=== PATIENT | female | born 1995 | race Caucasian/White ===

== ENCOUNTER 2019-06-24 05:08 | Emergency (ER) | payer MEDICAID, SELFPAY ==
--- NOTE | 2019-06-24 05:11 | ED_ITS ---
Entered by Melva Figueredo, acting as scribe for Radha Torres HPI - Abdominal Pain General: Chief Complaint: Abdominal Pain Stated Complaint: 7 weeks preg/abd pain/constipation Time Seen by Provider: 06/24/19 05:09 Source: patient and family Mode of arrival: ambulatory History of Present Illness: HPI narrative: 23 y/o female presents to the ED with complaint of abd pain and constipation for about a week. Pt states she is currently 7 weeks , she is 4 para 3. She has tried stool softeners and [id number] which have yielded large BMs each time, but she still feels like she is constipated. Pt reports some low back discomfort as well. Her primary concern at this time is that she does not have an ectopic . She states she has had a appendectomy in the past. MD elicited complaint: abdominal pain Associated Symptoms: Reports bloating and constipation; Denies chills, dysuria, fever(s), hematuria and syncope Review of Systems General: Reports: other (negative unless marked) Const: Denies: fever, chills, body aches, fatigue, malaise or diaphoresis Eyes: Denies: change in vision or blurry vision ENMT: Denies: throat pain, painful swallowing, hoarseness, ear pain, ear discharge, Change in hearing or nasal discharge Card: Denies: chest pain, palpitations, irregular heart rhythm, syncope, pre- syncope, shortness of breath on exertion or shortness of breath when lying down Resp: Denies: shortness of breath, productive cough, non-productive cough, wheezing, coughing up blood or chest congestion GI: Reports: abdominal pain, constipation and bloating : Denies: flank pain, painful urination, urinary frequency, urinary urgency, decreased urine ouput, urinary incontinence or blood in urine Skin/Breast: Denies: rash, skin tenderness or yellow skin Neuro: Denies: headache, numbness in extremities, weakness in extremities, changes in sensation, lack of coordination, difficulty walking, dizziness, vertigo or confusion Endo: Denies: excessive thirst, tired all the time, cold intolerance, excessive sweating, flushing or hot flashes Monty/Lymph: Denies: easy bruising, easy bleeding, petechiae or enlarged lymph nodes All/Imm: Denies: hives, throat swelling, tongue swelling, facial swelling or acute wheezing PFSH ED PFSH: Statuses (acute, chronic, etc) shown below reflect problem list status as previously entered and may not be historically accurate Social History Smoking and tobacco status: former smoker Physical Exam Const: COMMON NORMALS: no apparent distress, oriented x3, no limitations, healthy appearing and well nourished EXAM LIMITATIONS: no altered mental status GENERAL APPEARANCE: cooperative, well kempt and well developed ORIENTATION/CONSCIOUSNESS: Yes awake HENMT: COMMON NORMALS: normocephalic, head/scalp atraumatic, hearing grossly normal bilaterally, external ears normal, EAC's normal, external nose normal and moist oral mucous membranes HEAD & SCALP: normal to inspection, normocephalic and atraumatic FACE & SINUS: normal facial exam and face symmetric NOSE: external nose normal and nares normal EXTERNAL EAR: Yes external ears normal EXTERNAL AUDITORY CANAL: EAC's normal MOUTH: oral and palatal mucosa normal and tongue normal Eye: COMMON NORMALS: PERRL, EOMs intact bilaterally, conjunctivae normal and no scleral icterus GENERAL EYE: normal appearance of both eyes and normal light reflex CONJUNCTIVA: Yes conjunctivae normal SCLERA: sclerae normal CORNEA: Yes corneas normal PUPIL: Yes PERRL DIRECT OPHTHALMOSCOPY: Yes normal light reflex Neck/C-Spine: COMMON NORMALS: full ROM, no lymphadenopathy, supple, no meningeal signs and no JVD GENERAL: Yes normal visual inspection and Yes trachea midline CERVICAL SPINE: Yes cervical ROM normal Chest: COMMONS NORMALS: inspection of chest normal and palpation of chest normal Resp: COMMON NORMALS: normal respiratory effort, no retractions, no use of accessory muscles and clear to auscultation bilaterally EFFORT & INSPECTION: Yes able to speak in complete sentences AUSCULTATION: clear to auscultation bilaterally Cardio: COMMON NORMALS: no JVD, regular rate, regular rhythm, S1 normal heart sound, S2 normal heart sound, no gallops, no clicks, no murmurs and no rub JUGULAR VENOUS DISTENTION: no JVD RATE: regular rate RHYTHM: regular rhythm HEART SOUNDS: S1 normal and S2 normal GI: COMMON NORMALS: normal to inspection, nondistended, normoactive bowel sounds, soft to palpation, non-tender and no masses PALPATION: Yes soft : COMMON NORMALS: Yes no CVA tenderness and Yes bimanual exam normal BLADDER/KIDNEY EXAM: Yes no CVA tenderness EXTERNAL FEMALE EXAM: Yes normal appearance of the urethra, No erythema, No externally tender and No urethral discharge SPECULUM EXAM - VAGINA: No vaginal lesion, No vaginal bleeding, No tissue present in vagina, No vaginal mass and No vaginal swelling SPECULUM EXAM - CERVIX: No cervical os open, Yes cervical os closed, No tissue present in the cervical os and No cervical bleeding BIMANUAL EXAM - VAGINA & UTERUS: Yes normal bimanual exam, Yes normal vaginal palpation, Yes normal cervical palpation and Yes uterine size normal BIMANUAL EXAM - ADNEXA, OTHER: Yes normal adnexae, Yes adnexae mobile, Yes pelvic support normal, No adnexal tenderness, No adnexal mass, No cul-de-sac fullness and No cul-de-sac tenderness RECTO-VAGINAL: no cul-de-sac fullness and no cul-de-sac tenderness OB/EXTERNAL & SPECULUM: no tissue noted in vagina, cervical os open and vaginal bleeding Back/Pelvis: COMMON NORMALS: no CVA tenderness Extremity: COMMON NORMALS: normal to inspection, full ROM, normal capillary refill, no joint enlargement, no clubbing, cyanosis or edema and no calf tenderness Neuro: COMMON NORMALS: oriented x3, CN's II-XII intact bilaterally, moves all extremities, no focal motor deficits and no sensory deficits noted MENINGEAL SIGNS: Yes no meningeal signs Psych: COMMON NORMALS: mental status grossly normal, thought process normal, cooperative, affect normal, speech normal and activity/motor behavior normal APPEARANCE: Yes well kempt SPEECH: Yes normal speech THOUGHT PROCESS: normal thought process Skin: COMMON NORMALS: no rashes or lesions noted, skin turgor normal, no jaundice, no petechiae and no mottling GENERAL SKIN EXAM: no rashes or lesions noted and turgor normal Course Vital Signs: Vital signs: Vital Signs Temperature 97.6 F 06/24/19 05:18 Pulse Rate 71 06/24/19 07:01 Respiratory Rate 17 06/24/19 07:01 Blood Pressure 123/85 06/24/19 07:01 Pulse Oximetry 99 06/24/19 07:01 MDM - Abdominal Pain MDM Narrative: Medical decision making narrative: Patient presents with pelvic pain and low back pain in . Vital signs are stable and she is stated her primary concern is that of ectopic . She has had a appendectomy in the past but denies any other surgical interventions on her abdomen. This will be her third . Differential includes bowel obstruction, gastroenteritis, ectopic , threatened miscarriage among others. Clinically at this time I believe bowel obstruction is unlikely as the patient's not vomiting. UTI is a possibility as well but patient has no dysuria or hematuria. 0700 -patient's ultrasound reveals intrauterine and no sign of ectopic . Adnexa and tubes are normal excluding ovarian torsion or ruptured ovarian cyst. Patient has no vaginal bleeding or discharge. Per review of records the patient's Rh type is positive so she will not need RhoGam. Appendicitis is obviously not a problem she is had an appendectomy in the past. The patient declines any other imaging as she is concerned about radiation exposure to her fetus. Clinically at this time she is relieved and I believe her primary concern is that of just ectopic. I did make her aware about the possibility of a miscarriage and she is aware. She agrees to return should her symptoms change or worsen. Lab Data: Attestation: I reviewed the patient's lab results. Labs: Lab Results 06/24/19 06/24/19 06/24/19 Range/Units 05:29 05:50 05:50 WBC 9.9 (4.0-10.0) 10^3/ uL RBC 3.82 L (4.1-5.3) 10^6/u L Hgb 12.6 (11.5-15.3) g/dL Hct 35.7 L (37.0-47.0) % MCV 93.5 (81-99) fL MCH 33.0 (28.0-34.0) pg MCHC 35.3 (30.0-36.0) g/dL RDW 11.5 L (12.1-15.1) % Plt Count 166 (130-400) 10^3/c mm MPV 12.5 H (7.4-10.4) fL Neut % (Auto) 68.2 % Lymph % (Auto) 24.8 % [place] % (Auto) 5.4 % Eos % (Auto) 1.1 % Baso % (Auto) 0.4 % Neut # (Auto) 6.7 (1.8-7.7) 10^3/u L Lymph # (Auto) 2.5 (0.8-4.8) 10^3/u L [place] # (Auto) 0.5 (0.2-0.9) 10^3/u L Eos # (Auto) 0.1 (0.0-0.8) 10^3/u L Baso # (Auto) 0.0 (0.0-0.1) 10^3/u L Nucleated RBC % (a uto) 0 % Nucleated RBCs # 0.0 /100WBC Sodium 136 (136-145) mmol/L Potassium 3.7 (3.5-5.1) mmol/L Chloride 99 (98-107) mmol/L Carbon Dioxide 25 (22-29) mmol/L Anion Gap 15.7 (5-19) BUN 7 (6-20) mg/dL Creatinine 0.4 L (0.5-0.9) mg/dL GFR Calculation 199.6 H (90-130) mL/min Glucose 96 (74-109) mg/dL Calcium 9.8 (8.6-10.0) mg/Dl Total Bilirubin 0.2 (0.15-1.2) mg/dL AST 21 (0-32) U/L ALT 39 H (0-33) U/L Alkaline Phosphata se 70 (35-105) IU/L Total Protein 7.4 (6.6-8.7) g/dL Albumin 4.5 (3.5-5.2) g/dL Globulin 2.9 (1.3-4.6) g/dL Lipase 20 (13-60) U/L Ser , [place] [address].00 mIU/mL Urine Color Yellow (Yellow) Urine Appearance Cloudy A (CLEAR) Urine pH 8 H (5-7) Ur Specific Gravit y 1.020 (1.005-1.030) Urine Protein Neg (Negative) Urine Glucose (UA) Norm (Normal) Urine Ketones Negative (Negative) Urine Occult Blood Neg (Negative) Urine Nitrate Negative (Negative) Urine Bilirubin Neg (NEGATIVE) Prot Sulfosalicyli c Acd Negative Urine Urobilinogen Norm (Negative) mg/dL Ur Leukocyte Melinda ase Negative (Negative) Urine RBC None (0-2) /hpf Urine WBC None (0-5) /hpf Ur Squamous Epith Cells None (0-5) Amorphous Sediment 3+ Urine Bacteria 4+ H (NONE) Imaging Data ^: US: Radiologist's impression: Tech interpretation -7-week 2-day intrauterine with a heart rate in the 120s. Corpus luteum cyst on left ovary. No evidence of ovarian torsion. No tubo-ovarian abscess or free fluid. Otherwise unremarkable. Cervix closed. Discharge Plan Discharge Patient Disposition: Home, Self-Care Clinical Impression: Threatened miscarriage in early Condition: Stable Prescriptions: No Action No Known Home Medications RF: 0 Discharge Orders: Discharge Order (Routine); Ordered 06/24/19 Ordered By: Radha Torres Referrals: Delano Pineda MD [Physician] - Octavio Roque DO [Family Provider] - Discharge Diet: Usual diet Discharge Activity: Increase activity as tolerated Patient Instructions: Constipation - Adult, Threatened Miscarriage (ED) Activity Restrictions/Additional Instructions: Please return to the ER immediately for any of the signs or symptoms listed on your discharge instruction sheets, worsening/changing of your symptoms, you are not getting better as quickly as expected, or for ANY other cause or concerns. Return to the ER for vaginal bleeding, pain, fever, or for any other cause for concern. Interventions: ED Discharge Assessment Last Done: 06/24/19 07:01 Discharge Date/Time: 06/24/19 07:10 Coding Level of Care Code ED Wire Lather for Chg Fwd Exam Problem Focused The documentation recorded by the Terell reddy Ashley, accurately reflects the service I personally performed and the decisions made by Melissa campbell Eli N Jun 24, 2019 05:08
[2019-06-24 05:18] VITALS: BP 129/74; PULSE 88; RESP 16; TEMP 36.4; O2SAT 98; BMI 25.6
--- NOTE | 2019-06-24 05:19 | US_ITS ---
WS: [id number] EARLY OBSTETRICAL ULTRASOUND (<14 WEEKS). HISTORY: Pain COMPARISON: None available. Single intrauterine gestational sac is identified. Cardiac activity at 126 BPM. [place]-rump length richard sures 1.1 cm which corresponds to a gestation of 7w2d. Normal-appearing yolk sac and amnion demonstra steven. Smallsubchorionic hemorrhage.Hypoechoic area along the inferior gestational sac measures 0.8 x 0 .5 x 0.6 cm. No free fluid. Normal size LEFT ovary contains a collapsing corpus luteum or hemorrhagic cyst. Complex cyst with ret racting clot measures 1.7 x 1.9 cm. US/US OB <=14 wk fetus w transvag IMPRESSION: 1. Single intrauterine gestation of 7 weeks 2 days with an EDC of 02/08/2020. 2. LEFT corpus luteum cyst versus hemorrhagic cyst with retracting clot. 3. Tiny subchorionic hemorrhage.
[2019-06-24] MEDS: sodium chloride 0.9% 1,000 ML 100 ML IV (05:57)
[2019-06-24 06:04] LABS: Basophils % 0.4 %; Eosinophils # 0.1 10^3/uL (0.0-0.8); Eosinophils % 1.1 %; Hematocrit 35.7 % (37.0-47.0); Hemoglobin 12.6 g/dL (11.5-15.3); Lymphocytes # 2.5 10^3/uL (0.8-4.8); Lymphocytes % 24.8 %; Mean Corpuscular HGB Conc 35.3 g/dL (30.0-36.0); Mean Corpuscular Volume 93.5 fL (81-99); Mean Platelet Volume 12.5 fL (7.4-10.4); Monocytes # 0.5 10^3/uL (0.2-0.9); Monocytes % 5.4 %; Neutrophils # 6.7 10^3/uL (1.8-7.7); Neutrophils % 68.2 %; Nucleated Red Blood Cells % 0 %; Platelet Count 166 10^3/cmm (130-400); Red Blood Count 3.82 10^6/uL (4.1-5.3); Red Cell Distribution Width 11.5 % (12.1-15.1); White Blood Count 9.9 10^3/uL (4.0-10.0)
[2019-06-24 06:07] LABS: Bilirubin Urine Neg (NEGATIVE); Blood Urine Neg (Negative); Glucose Urine UA Norm (Normal); Ketones Urine Negative (Negative); Leukocyte Esterase Urine Negative (Negative); Nitrate Urine Negative (Negative); Protein Urine Neg (Negative); Sulfosalicylic Acid Urine Negative; Urine Appearance Cloudy (CLEAR); Urine Color Yellow (Yellow); Urobilinogen Urine Norm (Negative); pH Urine 8 (5-7)
[2019-06-24 06:08] LABS: Add Urine Culture? No; Amorphous Sediment Urine 3+; Bacteria Urine 4+
[2019-06-24 06:43] LABS: Alanine Aminotransferase 39 U/L (0-33); Albumin Level 4.5 g/dL (3.5-5.2); Alkaline Phosphatase 70 IU/L (35-105); Anion Gap 15.7 (5-19); Aspartate Amino Transferase 21 U/L (0-32); Blood Urea Nitrogen 7 mg/dL (6-20); Calcium 9.8 mg/Dl (8.6-10.0); Carbon Dioxide 25 mmol/L (22-29); Chloride 99 mmol/L (98-107); Globulin 2.9 g/dL (1.3-4.6); Glomerular Filtration Rate 199.6 mL/min (90-130); Glucose 96 mg/dL (74-109); Lipase 20 U/L (13-60); Potassium 3.7 mmol/L (3.5-5.1); Sodium 136 mmol/L (136-145); Total Bilirubin 0.2 mg/dL (0.15-1.2); Total Protein 7.4 g/dL (6.6-8.7)
--- NOTE | 2019-06-24 06:56 | PC.NURSE ---
Report received from Karina Best RN
[2019-06-24 07:00] VITALS: BP 123/85; PULSE 76; RESP 17; O2SAT 99
[2019-06-24 07:01] VITALS: BP 123/85; PULSE 71; RESP 17; O2SAT 99
--- NOTE | 2019-06-25 10:18 | DCPLANNER ---
systems manager had message to schedule a follow up appointment for patient with [facility]. systems manager called [facility], spoke with Shahrzad, gave clinic patients information. Case manger was told that patients information would be printed and reviewed. Clinic will call residential case manager and patient with appointment information.
--- NOTE | 2019-07-25 09:26 | DCPLANNER ---
resident care manager rn called Shahrzad at [facility] to confirm if an appointment had been scheduled for patient. resident care manager rn was told that the clinic has attempted to contact patient several times and has been unable to reach patient to schedule an appointment.
== END 2019-06-24 07:10 | disposition home or self-care (01) ==
PROVIDERS: Emergency Provider Emergency Medicine; Family Provider Electrodiagnostic Medicine
DX: O20.0 Threatened abortion (principal); Z3A.01 Less than 8 weeks gestation of pregnancy; Z87.891 Personal history of nicotine dependence
CPT/HCPCS: 76801; 76817; 80053; 81001; 83690; 84702; 85025; 87210; 87491; 87591; 96360; 99283; A9270; J7030

== ENCOUNTER 2020-01-31 22:00 | Inpatient (IN) | payer MEDICAID, SELFPAY ==
[2020-01-31] VITALS (56 sets, daily range): BP systolic 0–165; BP diastolic 0–98; PULSE 82–144; RESP 18; TEMP 36.5; O2SAT 91–99; BMI 29.4
[2020-01-31] MEDS: miSOPROStol 100 mcg tablet 25 MCG VAGINAL (20:22)
[2020-01-31] MEDS: lactated ringers 1,000 ML 999 ML IV ×2 (20:45→21:59)
[2020-01-31 21:38] LABS: Basophils % 0.3 %; Eosinophils # 0.1 10^3/uL (0.0-0.8); Eosinophils % 0.8 %; Hematocrit 32.8 % (37.0-47.0); Hemoglobin 10.6 g/dL (11.5-15.3); Lymphocytes % 22.1 %; Mean Corpuscular HGB Conc 32.3 g/dL (30.0-36.0); Mean Corpuscular Volume 89.9 fL (81-99); Mean Platelet Volume 13.7 fL (7.4-10.4); Monocytes # 0.6 10^3/uL (0.2-0.9); Monocytes % 6.4 %; Neutrophils # 6.48 10^3/uL (1.8-7.7); Nucleated Red Blood Cells % 0 %; Platelet Count 133 10^3/cmm (130-400); Red Blood Count 3.65 10^6/uL (4.1-5.3); Red Cell Distribution Width 12.4 % (12.1-15.1); White Blood Count 9.3 10^3/uL (4.0-10.0)
--- NOTE | 2020-01-31 22:18 | ANES.PREANE2 ---
Pre-Anesthetic Assessment Pre-Anesthetic Assessment: Height/Weight: Height 1.57 m Weight 73.028 kg Pulse BP 109 H 153/77 01/31/20 22:09 01/31/20 22:09 Preop Diagnosis: Labor Proposed Procedure: epidural Familial anesthetic complications: none Was Beta Aleks taken within 24 hours: N/A Social: Social History: No alcohol and No tobacco Exam: Pre-Anes Outpt Exam: alert, oriented x 3, clear to auscultation bilaterally and regular rate & rhythm Airway: Submandibular: WNL Cervical ROM: WNL MP: 2 Dentition: Full Pulmonary: Pulmonary: None reported CV/HEM: CV/HEM: None reported Hepatic: Hepatic: None reported GI: GI: GERD Metabolic: Metabolic: None reported Musc/skel: Musc/skel: None reported Neuropsych: Neuropsych: None reported Anesthetic Plan: ASA status: 2 Anesthesia: Eval. for regional block and Regional (specify below) Risk of > 500 ml blood loss (7ml/kg in children): No Meds/Allergies Current Medications: Current Medications Generic Name Dose Route Start Last Admin Trade Name Freq PRN Reason Stop Dose Admin Lactated Ringer's 1,000 mls @ 999 m ls/hr 01/31/20 19:51 01/31/20 21:59 Lactated Ringers IV 999 mls/hr .Q1H1M PRN Administration Per L&D Rescitati on Protocol Lactated Ringer's 1,000 mls @ 999 m ls/hr 01/31/20 19:56 01/31/20 20:45 Lactated Ringers IV 999 mls/hr .Q1H1M PRN Administration ANESTHESIA Misoprostol 25 mcg 01/31/20 20:00 01/31/20 20:22 Cytotec VAGINAL 02/01/20 00:01 25 mcg Q4H ERICKSON Administration PFSH Anesthesia PFSH: Social History Smoking and tobacco status: former smoker Female Reproductive History: : 4 Data Anesthesia CBC & Chem 7: 01/31/20 19:45 Other Labs: Laboratory Results - last 48 hr 01/31/20 19:45 WBC 9.3 RBC 3.65 L Hgb 10.6 L Hct 32.8 L MCV 89.9 MCH 29.0 MCHC 32.3 RDW 12.4 Plt Count 133 MPV 13.7 H Neut % (Auto) 70.0 Lymph % (Auto) 22.1 [place] % (Auto) 6.4 Eos % (Auto) 0.8 Baso % (Auto) 0.3 Neut # (Auto) 6.48 Lymph # (Auto) 2.0 [place] # (Auto) 0.6 Eos # (Auto) 0.1 Baso # (Auto) 0.0 Nucleated RBC % (auto) 0 Nucleated RBCs # 0.0 Cardiac Studies: No Data to Display
--- NOTE | 2020-01-31 22:45 | ANES.PROC ---
Anesthesia Procedures Procedure/Date: 01/31/20 epidural Procedure Narrative: epidural complete, bolus given, epidural pump initiated with STEEL SHOT HEADER OPERATOR education given, vitals taken during procedure using OBIX system and satisfactory throughout, patient admits to decrease pain, report of procedure to OB RN Epidural: Time Out Performed: Yes Consents Signed: Procedure Consent Consent: requested by attending/covering physician, from patient, risks and benefits reviewed and patient agrees to proceed Lumbar Level: L3-L4 Epidural position: sitting Epidural procedure: sterile prep of area, 1% lidocaine to numb the area (3 mL), 18 g needle, negative for paresthesia passed, neg for paresthesia, test dose given, 1.5% xylocaine 1:200k epi (5 mL), 0.2% Ropivacaine bolus ml (5 mL), placed PCEA, no systemic response, sterile dressing applied, L.U.D. no apparent complications and 0.2% Ropiavacaine @ mls/hr (13 mL/hr)
[2020-01-31] MEDS: ondansetron 2 mg/ML SDV 2 mL 4 MG IVP (22:59)
[2020-02-01] VITALS (61 sets, daily range): BP systolic 0–149; BP diastolic 0–90; PULSE 74–128; RESP 16–18; TEMP 36.4–37.2; O2SAT 90–98
[2020-02-01] MEDS: miSOPROStol 100 mcg tablet 25 MCG VAGINAL (00:29)
[2020-02-01] MEDS: dextrose 5%-lactated ringers 1,000 ML 125 ML IV ×2 (02:06→10:51)
[2020-02-01] MEDS: oxytocin 30 UNIT/500 ML BAG 600 UNIT IV (09:30)
--- NOTE | 2020-02-01 09:45 | P.PCNOB_ITS ---
Delivery Note: Date of delivery: February 01, 2020 this 24-year-old 4 now para 4 female at term was admitted for cervical ripening and induction. She was given misoprostol 25 mcg x 2 overnight and received epidural anesthesia in the [facility] secondary to significant pain. At approximately 5 cm dilated this morning she had spontaneous rupture of membranes with meconium-stained fluid. She dilated to completion with dilatation and delivered by spontaneous vaginal delivery a healthy, viable male infant at 09 27. Upon delivery of the head the mouth and nose were suctioned followed by delivery of the left shoulder anteriorly and the right shoulder posteriorly without problems. The infant was suctioned more and umbilical cord was clamped and cut prior to laying the infant on mother's abdomen per her request. The infant's father cut the umbilical cord. The was handed over to the nurses for evaluation and cleansing. The placenta delivered spontaneously at 09 30 with no lacerations and no sutures. As described above epidural anesthesia was used for the labor and delivery process. Apgars were 9 and 9 at 1 and 5 minutes respectively and weight was 8 pounds 8 ounces. Estimated blood loss approximately 146 mL. Pre-Delivery Course: This patient was followed throughout her course by this physician. There were no major problems or concerns throughout the . Maternal blood type is O+ with antibody screen negative. Hepatitis B, hepatitis C, RPR and HIV were negative. Rubella was immune and group B strep was negative. Mom was induced at her request at 40 weeks gestation. She had discussed with this physician and Dr. Avendano her desire for tubal ligation. Delivery: Spontaneous vaginal delivery as described above. Post-Delivery Status: Patient is doing well and will be followed for routine care. Dr. Avendano will be consulted for tubal ligation. A&P Assessment and plan (1) Normal spontaneous vaginal delivery: There were no problems with labor and delivery process. Mom will be followed for routine postdelivery care. Status: Acute (2) tubal ligation planned: Dr. Avendano has been consulted and he will see the patient and probably do the procedure tomorrow late morning. Status: Acute Coding Level of Care Code Acute Reservation Sales Agent for Song Fwanival Diagnoses Normal spontaneous vaginal delivery O80 tubal ligation planned
[2020-02-01] MEDS: benzocaine-menthol 78 gm Canister 1 SPRAY TOPICAL (10:50)
[2020-02-01] MEDS: HYDROcodone-acetaminophen 5-325 mg Tablet PO ×2 (12:37→18:37)
--- NOTE | 2020-02-01 13:05 | SUR.OPER ---
pt ambulated to pushing in open crib.
[2020-02-01] MEDS: docusate sodium 100 mg Capsule PO (18:30)
[2020-02-01 22:05] LABS: Hematocrit 26.9 % (37.0-47.0); Hemoglobin 8.5 g/dL (11.5-15.3); Mean Corpuscular HGB Conc 31.6 g/dL (30.0-36.0); Mean Corpuscular Hemoglobin 29.2 pg (28.0-34.0); Mean Corpuscular Volume 92.4 fL (81-99); Mean Platelet Volume 12.6 fL (7.4-10.4); Platelet Count 96 10^3/cmm (130-400); Red Blood Count 2.91 10^6/uL (4.1-5.3); Red Cell Distribution Width 12.7 % (12.1-15.1); White Blood Count 12.2 10^3/uL (4.0-10.0)
[2020-02-02] VITALS (7 sets, daily range): BP systolic 103–154; BP diastolic 68–86; PULSE 59–104; RESP 15–18; TEMP 36.1–36.9; O2SAT 96–98
[2020-02-02] MEDS: HYDROcodone-acetaminophen 5-325 mg Tablet PO ×2 (01:13→13:09)
[2020-02-02] MEDS: prenatal vitamin Capsule 1 CAP PO (08:43)
[2020-02-02] MEDS: docusate sodium 100 mg Capsule PO (08:43)
--- NOTE | 2020-02-02 08:46 | P.PN_ITS ---
Subjective Subjective: Interval history: Patient is doing well with just mild lochia. No significant cramps or other problems. He is bottlefeeding. Vitals/I&O/Wt Last Vital Signs Temp 97.7 F 02/02/20 06:19 Pulse 72 02/02/20 06:19 Resp 16 02/02/20 06:19 BP 126/77 02/02/20 06:19 Pulse Ox 97 02/02/20 06:19 02/01/20 02/02/20 02/02/20 22:59 06:59 14:59 Intake Total 1200 / 3047.917 Output Total 600 / 1500 Balance 600 / 1547.917 Weight last 48 hrs Weight 73.028 kg Weight 73.028 kg Physical Exam Const: COMMON NORMALS: no acute distress and average body habitus GENERAL APPEARANCE: cooperative Resp: COMMON NORMALS: normal respiratory effort, No retractions, No use of accessory muscles and clear to auscultation bilaterally AUSCULTATION: clear to auscultation bilaterally Cardio: COMMON NORMALS: regular rate, regular rhythm and No murmurs present (Cardio) RATE: regular rate RHYTHM: regular rhythm GI: COMMON NORMALS: Normal to inspection, nondistended, normoactive bowel sounds present, Soft to palpation and non-tender (Fundus is firm.) PALPATION: Yes Soft to palpation : COMMON NORMALS: Yes no CVA tenderness BLADDER/KIDNEY EXAM: Yes no CVA tenderness Back/Pelvis: COMMON NORMALS: no CVA tenderness Extremity: COMMON NORMALS: normal to inspection, full ROM and no pedal edema Neuro: COMMON NORMALS: no focal motor deficits and no sensory deficits noted Psych: COMMON NORMALS: mental status grossly normal and Normal thought process present THOUGHT PROCESS: Normal thought process present Urinary Catheter Management^: [place] Latex: Cath Placed During This Visit: yes Reason for Continuing Indwelling Catheter: Accurate Measurement of Urinary Output in Critically Ill Patients Urinary Catheter Date of Insertion: 02/01/20 Urinary Catheter Time of Insertion: 00:15 Data : 02/01/20 21:56 A&P Assessment and plan (1) Normal spontaneous vaginal delivery: Patient is doing well and will probably be stable for discharge this evening. Status: Acute (2) tubal ligation planned: Dr. Avendano plans to do tubal ligation this afternoon and patient can probably be discharged home a little bit after that. Status: Acute Attestations Medical Necessity Statement*: Patient is stable discharged home at this time. However, will monitor for a while after tubal ligation to make sure she is stable to go home. Coding Level of Care Code Acute Associate Artistic Director for Chg Fwd Diagnoses Normal spontaneous vaginal delivery O80 tubal ligation planned
--- NOTE | 2020-02-02 11:22 | PC.NURSE ---
Chante RN from surgery came to get pt, wheeled pt on gurney to surgery
--- NOTE | 2020-02-02 11:47 | ANE.PACU2 ---
Inpatient post-anesthesia follow up: Airway intact: Yes Vital signs: Temperature 97.7 F Pulse Rate 72 Respiratory Rate 16 Blood Pressure 126/77 Pulse Oximetry 97 Oxygen Delivery Me thod Room Air Oxygen Flow Rate Fraction of Inspir ed Oxygen Hydration adequate: Yes Nausea and vomiting: No Pain level: 2 Mental status: Baseline Additional Comments: No weakness, numbness, no headaches, slight tenderness to palpation of epidural site and no signs of infection at site
--- NOTE | 2020-02-02 11:49 | P.ANESASSM_ITS ---
Pre-Anesthetic Assessment Pre-Anesthetic Assessment: Height/Weight: Height 1.57 m Weight 73.028 kg Temp Pulse Resp BP Pulse Ox 97.7 F 72 16 126/77 97 02/02/20 06:19 02/02/20 06:19 02/02/20 06:19 02/02/20 06:19 02/02/20 06:19 Preop Diagnosis: undesired fertility Proposed Procedure: Operation Date: 02/02/20 12:10 Proposed Procedures p Post Bilateral Tubal Ligation(Bilateral) - Kai Avendano MD Operation Date: 02/02/20 12:00 Proposed Procedures p Bilateral Tubal Ligation(Bilateral) - Kai Avendano MD Familial anesthetic complications: None Last intake: Intake Last Liquid Date 02/02/20 Last Liquid Time 00:00 Last Solid Date 02/02/20 Last Solid Time 00:00 Social: Social History: No alcohol and No tobacco Exam: Pre-Anes Outpt Exam: alert, oriented x 3, clear to auscultation bilaterally and regular rate & rhythm Airway: Cervical ROM: WNL MP: 1 Dentition: Full Anesthetic Plan: ASA status: 1 Anesthesia: General Risk of > 500 ml blood loss (7ml/kg in children): No Meds/Allergies Current Medications: Current Medications Generic Name Dose Route Start Last Admin Trade Name Freq PRN Reason Stop Dose Admin Hydrocodone Bitart /Acetaminophen 1 - 2 tab 02/01/20 09:41 02/02/20 01:13 [place] 5-325 Mg PO 2 tab Q6H PRN Administration MODERATE TO SEVER E PAIN Benzocaine 1 spray 02/01/20 09:41 02/01/20 10:50 Dermoplast TOPICAL 1 can PRN PRN Administration PAIN Docusate Sodium 100 mg 02/01/20 18:00 02/02/20 08:43 Colace PO 100 mg BID ERICKSON Administration Ibuprofen 800 mg 02/01/20 15:00 02/02/20 08:43 Motrin PO 800 mg TID ERICKSON Administration Multivit/ Folic Acid/Iron 1 cap 02/02/20 09:00 02/02/20 08:43 -U PO 1 cap DAILY ERICKSON Administration PFSH Anesthesia PFSH: Social History Smoking and tobacco status: former smoker Female Reproductive History: : 4 Data Anesthesia CBC & Chem 7: 02/01/20 21:56 Other Labs: Laboratory Results - last 48 hr 01/31/20 02/01/20 19:45 21:56 WBC 9.3 12.2 H RBC 3.65 L 2.91 L Hgb 10.6 L 8.5 L Hct 32.8 L 26.9 L MCV 89.9 92.4 MCH 29.0 29.2 MCHC 32.3 31.6 RDW 12.4 12.7 Plt Count 133 96 L MPV 13.7 H 12.6 H Neut % (Auto) 70.0 Lymph % (Auto) 22.1 [place] % (Auto) 6.4 Eos % (Auto) 0.8 Baso % (Auto) 0.3 Neut # (Auto) 6.48 Lymph # (Auto) 2.0 [place] # (Auto) 0.6 Eos # (Auto) 0.1 Baso # (Auto) 0.0 Nucleated RBC % (auto) 0 Nucleated RBCs # 0.0 Cardiac Studies: No Data to Display
--- NOTE | 2020-02-02 11:49 | PM.OBGYHP ---
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 I saw her earlier in my office and we discussed the pros and cons of a tubal ligation. We discussed the risks including the risk of bleeding, infection, and damage to intra-abdominal organs. We also discussed other risks including an increased risk of AN ectopic and the possibility becoming again despite a successful tubal ligation. We once again discussed these risks this morning, and she would like to proceed. Present Details : 4 Para: 3 Labs Rubella: Equivocal RPR: Negative GBS: Negative Review of Systems General: Reports: 10 or more systems reviewed and unremarkable except in HPI and below Const: Reports: fatigue; Denies: fever(s) Eyes: Denies: change in vision Card: Denies: chest pain Musc: Reports: back pain Monty/Lymph: Denies: easy bruising Medications/Allergies Home Medications Medication Instructions Recorded Confirmed Last Taken Type No Known Home Medications 06/24/19 06/24/19 Unknown History Allergies Allergy/AdvReac Type Severity Reaction Status Date / Time No Known Allergies Allergy Verified 01/31/20 21:24 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 PFSH: Social History Smoking and tobacco status: former smoker Vitals/I&O/Wt Last Vital Signs Temp 97.7 F 02/02/20 06:19 Pulse 72 02/02/20 06:19 Resp 16 02/02/20 06:19 BP 126/77 02/02/20 06:19 Pulse Ox 97 02/02/20 06:19 02/01/20 02/02/20 02/02/20 22:59 06:59 14:59 Intake Total 1200 / 3047.917 Output Total 600 / 1500 Balance 600 / 1547.917 Weight last 48 hrs Weight 161 lb Weight 161 lb Physical Exam Const: COMMON NORMALS: patient oriented x3 and alert HENMT: COMMON NORMALS: moist oral mucous membranes HEAD & SCALP: normal to inspection Chest: COMMONS NORMALS: normal inspection of the chest Resp: COMMON NORMALS: clear to auscultation bilaterally AUSCULTATION: clear to auscultation bilaterally Cardio: COMMON NORMALS: regular rate and regular rhythm RATE: regular rate RHYTHM: regular rhythm GI: INSPECTION: Yes normal to inspection and Yes other (Gravid) Extremity: COMMON NORMALS: normal to inspection GENERAL: Yes edema (Trace) Neuro: COMMON NORMALS: patient oriented x3, moves all extremities and no sensory deficits noted SENSORIUM/ORIENTATION: Yes alert Psych: COMMON NORMALS: mental status grossly normal Skin: COMMON NORMALS: no rashes or lesions noted GENERAL SKIN EXAM: no rashes or lesions noted Urinary Catheter Management^: [place] Latex: Cath Placed During This Visit: yes Reason for Continuing Indwelling Catheter: Accurate Measurement of Urinary Output in Critically Ill Patients Urinary Catheter Date of Insertion: 02/01/20 Urinary Catheter Time of Insertion: 00:15 Data : 02/01/20 21:56 A&P Assessment and plan (1) Sterilization consult: We will proceed with a bilateral tubal ligation. As discussed earlier, we reviewed the pros and cons and risks. Status: Acute Attestations Medical Necessity Statement*: The patient should build to be discharged this evening if all goes well. 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
--- NOTE | 2020-02-02 12:27 | P.OP_ITS ---
Operative Report Date of procedure: February 02, 2020 Pre-op Diagnosis: undesired fertility Post-op diagnosis: same Procedure Done: minilaparotomy bilateral tubal ligation using a modified Jodi technique Specimens removed/disposition: Bilateral fallopian tube segments with the right segment being tagged Surgeon: Kai Avendano Anesthesia: General Estimated blood loss (mL): 5 Condition: stable Disposition: floor (OB) Procedure: The patient was brought back to the operating room where anesthesia was found to be adequate. 10 mL of 0.5% bupivacaine was then used to pre- anesthetize the area just inferior to the umbilicus. A #15 blade was then used to make a 3 cm transverse incision just inferior to the umbilicus. I then dissected down to the underlying subcutaneous tissue until arriving at the fasci a. The fascia was then nicked with the scalpel. The fascial incision was extended manually. I identified the fundus of the uterus and followed it to the left fallopian tube. The fallopian tube was then followed to the fimbria. The tube was then ligated, cut, and cauterized in a modified Preston fashion using 0 chromic. The right fallopian tube was then identified and followed through to the fimbria. It was ligated, cut, and cauterized in similar fashion. The right fallopian tube was tagged. Both fallopian tubes had excellent hemostasis. The fascia was reapproximated using 0 Vicryl in running stitch. The subcutaneous tissue was carefully examined and no further bleeding was noted. The skin was then reapproximated using 4-0 Vicryl in a running subcuticular stitch. A sterile dressing was placed. All counts were correct x2. The patient was moved to the recovery room in stable condition.
== END 2020-02-02 16:00 | disposition home or self-care (01) | DRG 798 ==
LOC: OBGYN 02-01 11:24 → OPOB 02-03 07:54
PROVIDERS: Family Medicine; Admitting Provider Family Medicine; Family Provider Electrodiagnostic Medicine; Visit Provider Family Medicine
PROC: 0UL74DZ Occlusion of Bilateral Fallopian Tubes with Intraluminal Device, Percutaneous Endoscopic Approach (ICD-10-PCS; CPT 58605; principal; 2020-02-02 12:00)
DX: O77.0 Labor and delivery complicated by meconium in amniotic fluid (principal); Z37.0 Single live birth; Z3A.40 40 weeks gestation of pregnancy; Z30.2 Encounter for sterilization
CPT/HCPCS: 12345; 36415; 51702; 59025; 59409; 85025; 85027; 88302; 96375; J0330; J2405; J2704; J2795; J3010; J3490

== ENCOUNTER 2023-08-10 07:32 | Outpatient (CLI) | payer BC, MEDICAID, SELFPAY ==
--- NOTE | 2023-08-10 07:36 | MR_ITS ---
WS: [id number] MRI BRAIN WITH HIGH-RESOLUTION IMAGING THROUGH THE INTERNAL AUDITORY CANALS WITHOUT CONTRAST HISTORY: HEARING LOSS, UNI, LEFT EAR COMPARISON: None available. TECHNIQUE: Multiplanar, multisequence imaging is performed through the brain. Additional 3 mm imaging performed in multiple planes through the internal auditory canal. Patient refused IV contrast. No acute intracranial hemorrhage, midline shift, edema or mass effect. No prior infarct. No ischemia. Normal diffusion. Normal hippocampal formations. Ventricles and extra-axial spaces are normal. No inferior displacement of cerebellar tonsils. Clivus and pituitary gland are normal. Internal and external auditory canals: Unremarkable. Cranial nerves VII and VIII complexes: Unremarkable. No enhancement or mass. Cerebellopontine angles: Normal. Paranasal sinuses: Normal. Mastoid air cells: Normal. Calvarium and scalp: Normal. IMPRESSION: Normal noncontrast MRI IACs.
== END 2023-08-10 07:33 | disposition home or self-care (01) ==
LOC: RAD 07:32
PROVIDERS: Visit Provider Specialist
DX: H90.42 Sensorineural hearing loss, unilateral, left ear, with unrestricted hearing on the contralateral side (principal)
CPT/HCPCS: 70551